=== PATIENT | male | born 1965 ===

== ENCOUNTER 2016-06-01 18:25 | Emergency (ER) | payer OTHER ==
[2016-06-01 18:36] VITALS: BMI 29.8
[2016-06-01 19:30] LABS: BASO # 0.1 K/uL (0.0-0.2); EOS # 0.4 K/uL (0.0-0.7); EOS % 3.7 % (0.0-4.0); LYMPH # 3.3 K/uL (1.0-4.3); LYMPH % 34.7 % (20.0-40.0); MEAN CORPUSCULAR HEMOGLOBIN 29.5 pg (27.0-31.0); MEAN CORPUSCULAR HGB CONC 33.8 g/dL (33.0-37.0); MEAN PLATELET VOLUME 10.6 fL (7.2-11.7); MONO # 0.5 K/uL (0.0-0.8); MONO % 5.1 % (0.0-10.0); RED CELL DISTRIBUTION WIDTH 13.9 % (11.5-14.5); WHITE BLOOD COUNT 9.5 K/uL (4.8-10.8)
[2016-06-01 19:35] LABS: CHLORIDE 98 mmol/L (98-107); POTASSIUM 3.9 mmol/L (3.6-5.2); SODIUM 138 mmol/L (132-148)
[2016-06-01 19:37] LABS: AST/SGOT 28 U/L (17-59); BILIRUBIN,TOTAL 0.4 mg/dL (0.2-1.3); CARBON DIOXIDE 25 mmol/L (22-30); GFR AFRICAN-AMERICAN > 60
[2016-06-01 19:38] LABS: ALB/GLOB RATIO 1.3 (1.0-2.1); ALKALINE PHOSPHATASE 62 U/L (38-126); ALT/SGPT 41 U/L (21-72); BLOOD UREA NITROGEN 17 mg/dL (9-20); CALCIUM 8.9 mg/dl (8.6-10.4); GLUCOSE,RANDOM 90 mg/dL (75-110); TOTAL PROTEIN 7.7 g/dL (6.3-8.3)
--- NOTE | 2016-06-01 19:42 | C.PDOC ---
History Of Present Illness Patient presents to the emergency room with complaints of intermittent chest pain for 2 days. Patient also notes dizziness and headaches. Patient's blood pressure is not well controlled. Patient denies shortness of breath, visual changes, nausea, vomiting, diarrhea, or any other complaints. Time Seen by Provider: 06/01/16 19:41 Chief Complaint (Nursing): Palpitations History Per: Patient Onset/Duration Of Symptoms: Days (2) Current Symptoms Are (Timing): Still Present Associated Symptoms: Chest Pain, Dizziness, Headache. denies: Blurred Vision Severity: Mild Pain Scale Rating Of: 4 Recent travel outside of the [place]: No Past Medical History Reviewed: Historical Data, Nursing Documentation, Vital Signs Vital Signs: Last Vital Signs Temp 98.1 F 06/01/16 19:19 Pulse 71 06/01/16 19:19 Resp 17 06/01/16 19:19 BP 147/108 H 06/01/16 20:34 Pulse Ox 96 06/01/16 20:00 - Medical History PMH: HTN Denies: Chronic Kidney Disease Family History: States: Unknown Family Hx - Social History Hx Tobacco Use: No Hx Alcohol Use: No Hx Substance Use: No - Immunization History Hx Tetanus Toxoid Vaccination: No Hx Influenza Vaccination: No Hx Pneumococcal Vaccination: No Review Of Systems Cardiovascular: Positive for: Chest Pain Respiratory: Negative for: Shortness of Breath Gastrointestinal: Negative for: Nausea, Vomiting, Diarrhea Neurological: Negative for: Headache, Dizziness Physical Exam - Physical Exam Appears: Non-toxic Skin: Warm, Dry Chest: Symmetrical, No Tenderness Cardiovascular: Rhythm Regular Respiratory: No Rales, No Rhonchi, No Wheezing Gastrointestinal/Abdominal: Soft, No Tenderness, No Guarding, No Rebound Extremity: Normal ROM, No Tenderness, No Calf Tenderness, No Swelling Neurological/Psych: Oriented x3 ED Course And Treatment - Laboratory Results Result Diagrams: 06/01/16 19:27 06/01/16 19:27 ECG: Interpreted By Me, Viewed By Me ECG Rhythm: Sinus Rhythm (84), Nonspecific Changes O2 Sat by Pulse Oximetry: 96 Pulse Ox Interpretation: Normal Progress Note: cardiac work up, toradol, ct head Reevaluation Time: 21:05 Reassessment Condition: Improved Medical Decision Making Medical Decision Making: Upon provider reevaluation patient is feeling better, is medically stable, and requires no further treatment in the ED at this time. Patient will be discharged home with Rx for Naproxyn . Counseling was provided and all questions were answered regarding diagnosis and need for follow up with the referred clinic. There is agreement to discharge plan. Return if symptoms persist or worsen. Disposition Counseled Patient/Family Regarding: Studies Performed, Diagnosis, Need For Followup, Rx Given - Disposition Referrals: Pat Samuel DO [Resident] - Disposition: HOME/ ROUTINE Disposition Time: 20:06 Condition: FAIR Additional Instructions: Please return if symptoms recur Prescriptions: Naproxen [Naprosyn] 1 tab PO BID PRN #25 tab PRN Reason: Pain Instructions: Palpitations (ED), Hypertension (DC), General Headache (ED) Print Language: TAMAZIGHT - Clinical Impression Clinical Impression: Palpitations, HTN (hypertension), Headache - Scribe Statement The provider has reviewed the documentation as recorded by the Scribroyer Wiley All medical record entries made by the Lilianeibroyer were at my direction and personally dictated by me. I have reviewed the chart and agree that the record accurately reflects my personal performance of the history, physical exam, medical decision making, and the department course for this patient. I have also personally directed, reviewed, and agree with the discharge instructions and disposition.
[2016-06-01 20:08] LABS: RBC URINE < 1 /hpf (0-3); URINE BACTERIA OCC (<OCC); URINE BILIRUBIN NEGATIVE (NEGATIVE); URINE BLOOD NEGATIVE (NEGATIVE); URINE COLOR Yellow (YELLOW); URINE GLUCOSE (UA) NORMAL (Normal); URINE KETONE NEGATIVE (NEGATIVE); URINE LEUKOCYTE ESTERASE TRACE Leu/uL (Negative); URINE PROTEIN NEGATIVE (NEGATIVE); URINE UROBILINOGEN NORMAL mg/dL (0.2-1.0); WBC URINE 7 /hpf (0-5)
[2016-06-01 21:19] VITALS: BP 142/81; PULSE 72; RESP 20; TEMP 98.6; O2SAT 98
--- NOTE | 2016-06-02 07:53 | CT ---
PROCEDURE: CT HEAD WITHOUT CONTRAST. HISTORY: dizziness COMPARISON: None available. TECHNIQUE: Axial computed tomography images were obtained through the head/brain without intravenous contrast. This CT exam was performed using one or more of the following dose reduction techniques: Automated exposure control, adjustment of the mA and/or kV according to patient size, and/or use of iterative reconstruction technique. Radiation dose: Total exam DLP = 896.79 mGy-cm. FINDINGS: HEMORRHAGE: No intracranial hemorrhage. BRAIN: No mass effect or edema. No atrophy or chronic microvascular ischemic changes. VENTRICLES: Unremarkable. No hydrocephalus. CALVARIUM: Unremarkable. PARANASAL SINUSES: Almost complete opacification of the right sphenoid sinus and mild mucosal thickening in the left frontal and ethmoid sinuses. MASTOID AIR CELLS: Unremarkable as visualized. No inflammatory changes. OTHER FINDINGS: None. IMPRESSION: No evidence of acute intracranial hemorrhage intracranial collection territorial infarct mass effect or midline shift. Mild atrophy. Sinuses mucosal disease more prominent at the right sphenoid sinus. Preliminary report was submitted by virtual Radiology.
--- NOTE | 2016-06-02 08:21 | RAD ---
PROCEDURE: CHEST RADIOGRAPH, 1 VIEW HISTORY: Palpations COMPARISON: 10/13/2014 FINDINGS: LUNGS: Clear. PLEURA: No pneumothorax or pleural fluid seen. CARDIOVASCULAR: Normal. OSSEOUS STRUCTURES: No significant abnormalities. VISUALIZED UPPER ABDOMEN: Normal. OTHER FINDINGS: None. IMPRESSION: No active disease.
--- NOTE | 2016-06-03 06:26 | CARD ---
APPROVED REPORT EKG Measurement Heart [id number] <Conclusion> Normal sinus rhythm Normal ECG
== END 2016-06-01 21:19 | disposition home or self-care (01) ==
LOC: C.ER 18:25
DX: R00.2 Palpitations (principal); I10 Essential (primary) hypertension; R51 Headache
CPT/HCPCS: 70450; 71010; 80053; 80324; 80345; 80346; 80349; 80353; 80358; 80361; 81001; 83992; 84443; 84484; 85025; 85610; 85730; 93005; 96374; 99285; J1885

== ENCOUNTER 2016-06-06 13:17 | Emergency (ER) | payer OTHER ==
[2016-06-06 13:18] VITALS: BMI 29.8
[2016-06-06 13:36] VITALS: TEMP 98.1; O2SAT 100
[2016-06-06 14:16] LABS: URINE BILIRUBIN NEGATIVE (NEGATIVE); URINE BLOOD NEGATIVE (NEGATIVE); URINE COLOR Yellow (YELLOW); URINE GLUCOSE (UA) NORMAL (Normal); URINE KETONE NEGATIVE (NEGATIVE); URINE LEUKOCYTE ESTERASE NEG Leu/uL (Negative); URINE PROTEIN NEGATIVE (NEGATIVE); URINE UROBILINOGEN NORMAL mg/dL (0.2-1.0); WBC URINE 1 /hpf (0-5)
[2016-06-06 14:50] VITALS: BP 161/98; PULSE 64; RESP 18
--- NOTE | 2016-06-06 14:50 | C.PDOC ---
History Of Present Illness 51 y/o male presents to the ED with complains of chronic right epididymal discomfort intermittently. Pt denies dysuria, urinary retention or any other complaints. Time Seen by Provider: 06/06/16 13:51 Chief Complaint (Nursing): Abdominal Pain History Per: Patient History/Exam Limitations: no limitations Onset/Duration Of Symptoms: Days, Intermittent Episodes Current Symptoms Are (Timing): Still Present Associated Symptoms: denies: Fever, Urinary Symptoms Exacerbating Factors: None Alleviating Factors: None Recent travel outside of the [place]: No Past Medical History Reviewed: Historical Data, Nursing Documentation, Vital Signs Vital Signs: Last Vital Signs Temp 98.1 F 06/06/16 13:22 Pulse 64 06/06/16 14:47 Resp 18 06/06/16 14:47 BP 161/98 H 06/06/16 14:47 Pulse Ox 100 06/06/16 14:50 - Medical History PMH: HTN Family History: States: Unknown Family Hx - Social History Hx Tobacco Use: No Hx Alcohol Use: No Hx Substance Use: No - Immunization History Hx Tetanus Toxoid Vaccination: No Hx Influenza Vaccination: No Hx Pneumococcal Vaccination: No Review Of Systems Except As Marked, All Systems Reviewed And Found Negative. Constitutional: Negative for: Fever Genitourinary: Positive for: Other (right epididymal discomfort. no urinary retention). Negative for: Dysuria Physical Exam - Physical Exam Appears: Non-toxic, No Acute Distress Skin: Warm, Dry, No Rash Head: Atraumatic, Normacephalic Chest: Symmetrical Cardiovascular: Rhythm Regular Respiratory: Normal Breath Sounds, No Rales, No Rhonchi, No Wheezing Gastrointestinal/Abdominal: Soft, No Tenderness, Other (no bladder fullness) Male Genital: Normal Inspection, No Testicular Tenderness, No Testicular Swelling, No Inguinal Tenderness, No Inguinal Swelling, No Scrotal Swelling, Other (normal penis, scrotum and testicles) Extremity: Normal ROM Extremity: Bilateral: Atraumatic Neurological/Psych: Oriented x3 ED Course And Treatment - Laboratory Results Lab Interpretation: Normal (UA neg.) O2 Sat by Pulse Oximetry: 100 (on room air) Pulse Ox Interpretation: Normal Reevaluation Time: 14:48 Reassessment Condition: Improved Medical Decision Making Medical Decision Making: h/o urinary retention and hematuria but normal UA and bladder scan 60 cc's today vague R epididimal discomfort (for years) ok to f/u with Urology Vague R knee discomforts chronic- already in outpatient ortho clinic. Disposition Doctor Will See Patient In The: Office Counseled Patient/Family Regarding: Studies Performed, Diagnosis - Disposition Referrals: Matthew Guerin MD [Staff Provider] - Disposition: HOME/ ROUTINE Disposition Time: 14:49 Condition: GOOD Additional Instructions: Sigue con Dr. Huerta- Urologo- para seguir ravi evaluaciones de molestias de la prostata y los testiculos. [place] ibuprofeno 600 mg cada 6 horas kusum necessario la orina y la vejiga estan normales hoy. Instructions: Testicle Pain (ED) Print Language: FIJIAN - Clinical Impression Clinical Impression: Pelvic pain in male - Scribe Statement The provider has reviewed the documentation as recorded by the Yoli Foss Provider Attestation: All medical record entries made by the Lilianeibe were at my direction and personally dictated by me. I have reviewed the chart and agree that the record accurately reflects my personal performance of the history, physical exam, medical decision making, and the department course for this patient. I have also personally directed, reviewed, and agree with the discharge instructions and disposition.
== END 2016-06-06 15:02 | disposition home or self-care (01) ==
LOC: C.ER 13:17
DX: R10.2 Pelvic and perineal pain (principal)

== ENCOUNTER 2016-09-26 16:53 | Emergency (ER) | payer OTHER ==
[2016-09-26 17:10] VITALS: O2SAT 98
[2016-09-26] MEDS ORDERED: Sodium Chloride 0.9% 1,000 ML IV ONE (17:36)
[2016-09-26] MEDS ORDERED: Sodium Chloride 0.9% 1,000 ML ONE (17:54)
[2016-09-26 18:04] LABS: BASO # 0.1 K/uL (0.0-0.2); BASO % 0.9 % (0.0-2.0); EOS # 0.4 K/uL (0.0-0.7); EOS % 5.3 % (0.0-4.0); HEMATOCRIT 43.2 % (35.0-51.0); LYMPH # 2.2 K/uL (1.0-4.3); LYMPH % 28.4 % (20.0-40.0); MEAN CELL VOLUME 87.1 fL (80.0-94.0); MEAN CORPUSCULAR HGB CONC 34.4 g/dL (33.0-37.0); MEAN PLATELET VOLUME 10.2 fL (7.2-11.7); MONO # 0.5 K/uL (0.0-0.8); MONO % 6.6 % (0.0-10.0); RED CELL DISTRIBUTION WIDTH 13.8 % (11.5-14.5); WHITE BLOOD COUNT 7.6 K/uL (4.8-10.8)
[2016-09-26 18:12] LABS: CHLORIDE 102 mmol/L (98-107)
[2016-09-26 18:13] LABS: POTASSIUM 3.8 mmol/L (3.6-5.2); SODIUM 144 mmol/L (132-148)
[2016-09-26 18:15] LABS: ALB/GLOB RATIO 1.4 (1.0-2.1); ALKALINE PHOSPHATASE 87 U/L (38-126); AST/SGOT 28 U/L (17-59); BILIRUBIN,TOTAL 0.6 mg/dL (0.2-1.3); CARBON DIOXIDE 26 mmol/L (22-30); GFR AFRICAN-AMERICAN > 60
[2016-09-26 18:16] LABS: ALT/SGPT 40 U/L (21-72); BLOOD UREA NITROGEN 10 mg/dL (9-20); CALCIUM 9.2 mg/dl (8.6-10.4); GLUCOSE,RANDOM 86 mg/dL (75-110)
[2016-09-26 18:19] LABS: RBC URINE 73 /hpf (0-3); URINE BACTERIA OCC (<OCC); URINE BILIRUBIN NEGATIVE (NEGATIVE); URINE BLOOD 3+ (NEGATIVE); URINE COLOR Yellow (YELLOW); URINE GLUCOSE (UA) NORMAL (Normal); URINE KETONE NEGATIVE (NEGATIVE); URINE LEUKOCYTE ESTERASE 2+ Leu/uL (Negative); URINE PROTEIN NEGATIVE (NEGATIVE); URINE UROBILINOGEN NORMAL mg/dL (0.2-1.0); WBC URINE 16 /hpf (0-5)
--- NOTE | 2016-09-26 18:30 | CT ---
PROCEDURE: CT Abdomen and Pelvis without Oral or IV contrast. HISTORY: Right flank pain, hematuria COMPARISON: CT abdomen and pelvis with contrast performed 09/06/14 TECHNIQUE: Contiguous axial images of the abdomen and pelvis. No oral or IV contrast administered. Coronal and Sagittal reformats generated and reviewed. Radiation dose: Total exam DLP = 767.44 mGy-cm. This CT exam was performed using one or more of the following dose reduction techniques: Automated exposure control, adjustment of the mA and/or kV according to patient size, and/or use of iterative reconstruction technique. FINDINGS: There is limited evaluation of the solid organs without the administration of IV contrast. LOWER THORAX: No visible consolidation, pleural effusion, or pneumothorax. LIVER: Unremarkable unenhanced appearance. GALLBLADDER AND BILE DUCTS: Cholelithiasis. PANCREAS: Unremarkable unenhanced appearance. SPLEEN: Unremarkable unenhanced appearance. ADRENALS: Unremarkable unenhanced appearance. KIDNEYS AND URETERS: No hydronephrosis or obstructing renal calculus. BLADDER: Under distention of the urinary bladder limits evaluation. REPRODUCTIVE: The prostate gland measures approximately 4.7 x 4.6 cm. APPENDIX: The appendix appears within normal limits of caliber. No secondary signs of acute appendicitis. BOWEL: The stomach is nondistended. Lack of oral contrast limits evaluation for bowel pathology. The bowel loops appear within normal limits of caliber without evidence of intestinal obstruction. PERITONEUM: No significant free fluid. No definite free air. LYMPH NODES: No bulky lymphadenopathy identified. VASCULATURE: No aortic aneurysm. BONES: Mild degenerative changes. OTHER FINDINGS: None. IMPRESSION: Cholelithiasis. Enlarged prostate gland. Recommend correlation with PSA.
[2016-09-26] MEDS ORDERED: cefTRIAXone IV 1 gm in Dextros 50 ML IVPB ONE ×2 (19:14→19:37)
--- NOTE | 2016-09-26 20:11 | C.PDOC ---
Time Seen by Provider: 09/26/16 17:19 Chief Complaint (Nursing): Abdominal Pain History Per: Patient, Family Onset/Duration Of Symptoms: Days (few), Waxing/Waning Current Symptoms Are (Timing): Still Present Severity: Moderate Location Of Pain/Discomfort: RLQ Radiation Of Pain To:: Back, Flank Quality Of Discomfort: "Pain" Associated Symptoms: Urinary Symptoms Exacerbating Factors: None Alleviating Factors: None Additional History Per: Prior Records Past Medical History Reviewed: Historical Data, Nursing Documentation, Vital Signs Vital Signs: Last Vital Signs Temp 97.6 F 09/26/16 19:22 Pulse 62 09/26/16 19:22 Resp 18 09/26/16 19:22 BP 163/97 H 09/26/16 19:22 Pulse Ox 98 09/26/16 19:22 - Medical History PMH: HTN, Kidney Stones Surgical History: No Surg Hx Family History: States: Unknown Family Hx - Social History Hx Tobacco Use: No Hx Alcohol Use: No Hx Substance Use: No - Immunization History Hx Tetanus Toxoid Vaccination: No Hx Influenza Vaccination: No Hx Pneumococcal Vaccination: No Review Of Systems Except As Marked, All Systems Reviewed And Found Negative. Constitutional: Negative for: Fever, Weakness Cardiovascular: Negative for: Chest Pain Respiratory: Negative for: Shortness of Breath Gastrointestinal: Negative for: Vomiting, Diarrhea Genitourinary: Positive for: Dysuria, Hematuria Musculoskeletal: Negative for: Neck Pain Skin: Negative for: Rash Neurological: Negative for: Weakness, Numbness, Seizures, Altered Mental Status Physical Exam - Physical Exam Appears: Non-toxic, No Acute Distress Skin: Normal Color, Warm, Dry, No Rash Head: Atraumatic, Normacephalic Eye(s): bilateral: Normal Inspection, PERRL, EOMI Cardiovascular: Rhythm Regular Respiratory: Normal Breath Sounds, No Accessory Muscle Use Gastrointestinal/Abdominal: Soft, Tenderness (right side) Back: No CVA Tenderness Extremity: Normal ROM Neurological/Psych: Oriented x3, Normal Motor, Normal Sensation ED Course And Treatment - Laboratory Results Result Diagrams: 09/26/16 18:00 09/26/16 18:00 Lab Interpretation: Abnormal Interpretation Of Abnormal: Hematuria/UTI. O2 Sat by Pulse Oximetry: 98 Pulse Ox Interpretation: Normal - CT Scan/US CT abd/pelv. Other Rad Studies (CT/US): Read By Radiologist, Radiology Report Reviewed CT/US Interpretation: IMPRESSION: Cholelithiasis. Enlarged prostate gland. Recommend correlation with PSA. Progress - Interventions Interventions:: Observation, Intravenous fluid - Medications Administered Intravenous: NSAID - Data Reviewed Data Reviewed: Lab, Diagnostic imaging, Old records - Patient Status Patient status: Mostly improved - Continuity of Care Discussed patient case with:: Patient, Family-HIPPA compliant, ED Nurse - Patient Plan Patient Plan: Discharge, F/U with PCP, Continue present meds Disposition Counseled Patient/Family Regarding: Studies Performed, Diagnosis, Need For Followup, Rx Given - Disposition Referrals: Saad Whittington MD [Staff Provider] - [facility] [Outside] Disposition: HOME/ ROUTINE Disposition Time: 20:12 Condition: STABLE Additional Instructions: Drink plenty of fluids. Follow up with a Urologist within 1 week for further evaluation and treatment. Return to the ER if you develop fever, vomiting, trouble urinating, worsening of symptoms or if you have any other concerns. Prescriptions: Ciprofloxacin [Cipro] 1 tab PO BID #14 tab Instructions: Urinary Tract Infection in Men (ED) Print Language: ITALIAN - Clinical Impression Clinical Impression: Right flank pain, UTI (urinary tract infection), Enlarged prostate
[2016-09-26 20:22] VITALS: BP 150/83; PULSE 54; RESP 20; TEMP 97.9
== END 2016-09-26 20:22 | disposition home or self-care (01) ==
LOC: C.ER 16:53
DX: N39.0 Urinary tract infection, site not specified (principal); N40.0 Benign prostatic hyperplasia without lower urinary tract symptoms; R10.31 Right lower quadrant pain
CPT/HCPCS: 74176; 80053; 81001; 83690; 85025; 87086; 96361; 96374; 96375; 99284; J0696; J1885; J7040

== ENCOUNTER 2016-12-30 11:24 | Emergency (ER) | payer OTHER ==
[2016-12-30 11:39] VITALS: BMI 34.5
[2016-12-30 11:40] VITALS: TEMP 97.8; O2SAT 98
[2016-12-30] MEDS ORDERED: Sodium Chloride 0.9% 1,000 ML IV ONE (12:18)
[2016-12-30 12:20] LABS: BASO # 0.1 K/uL (0.0-0.2); BASO % 0.7 % (0.0-2.0); EOS # 0.6 K/uL (0.0-0.7); EOS % 7.9 % (0.0-4.0); HEMATOCRIT 45.1 % (35.0-51.0); LYMPH # 2.1 K/uL (1.0-4.3); LYMPH % 26.8 % (20.0-40.0); MEAN CELL VOLUME 88.1 fL (80.0-94.0); MEAN CORPUSCULAR HEMOGLOBIN 29.7 pg (27.0-31.0); MEAN CORPUSCULAR HGB CONC 33.7 g/dL (33.0-37.0); MEAN PLATELET VOLUME 10.3 fL (7.2-11.7); MONO # 0.4 K/uL (0.0-0.8); MONO % 5.3 % (0.0-10.0); RED CELL DISTRIBUTION WIDTH 14.1 % (11.5-14.5); WHITE BLOOD COUNT 7.8 K/uL (4.8-10.8)
[2016-12-30 12:23] LABS: CHLORIDE 102 mmol/L (98-107); SODIUM 135 mmol/L (132-148)
[2016-12-30 12:25] LABS: GFR AFRICAN-AMERICAN > 60
[2016-12-30 12:26] LABS: ALB/GLOB RATIO 1.6 (1.0-2.1); ALKALINE PHOSPHATASE 75 U/L (38-126); ALT/SGPT 60 U/L (21-72); AST/SGOT 44 U/L (17-59); BLOOD UREA NITROGEN 15 mg/dL (9-20); CALCIUM 8.8 mg/dl (8.6-10.4); CARBON DIOXIDE 22 mmol/L (22-30); GLUCOSE,RANDOM 133 mg/dL (75-110)
[2016-12-30 12:27] LABS: URINE BACTERIA RARE (<OCC); URINE BILIRUBIN NEGATIVE (NEGATIVE); URINE BLOOD 2+ (NEGATIVE); URINE COLOR Yellow (YELLOW); URINE GLUCOSE (UA) NORMAL (Normal); URINE KETONE NEGATIVE (NEGATIVE); URINE LEUKOCYTE ESTERASE TRACE Leu/uL (Negative); URINE PROTEIN NEGATIVE (NEGATIVE); URINE UROBILINOGEN NORMAL mg/dL (0.2-1.0); WBC URINE 5 /hpf (0-5)
[2016-12-30 12:28] LABS: RBC URINE 4 /hpf (0-3)
--- NOTE | 2016-12-30 12:52 | C.PDOC ---
History Of Present Illness 51 year old male presents to ED for evaluation of intermittent lower abdominal and pelvic pain that radiates to his right testicle for the past 4 days. Pt reports associated hematuria for the last 2 days. Pt also complaints of chills and body aches for the past 1 month. He denies n/v/d, dysuria, or fever. Time Seen by Provider: 12/30/16 11:40 Chief Complaint (Nursing): Abdominal Pain History Per: Patient History/Exam Limitations: no limitations Onset/Duration Of Symptoms: Days (4) Current Symptoms Are (Timing): Still Present Severity: Mild Location Of Pain/Discomfort: Suprapubic Quality Of Discomfort: "Pain" Associated Symptoms: Chills, Urinary Symptoms. denies: Loss Of Appetite, Back Pain, Chest Pain Exacerbating Factors: None Alleviating Factors: None Additional History Per: Patient Past Medical History Reviewed: Historical Data, Nursing Documentation, Vital Signs Vital Signs: Last Vital Signs Temp 97.8 F 12/30/16 15:40 Pulse 78 12/30/16 15:40 Resp 20 12/30/16 15:40 BP 120/74 12/30/16 15:40 Pulse Ox 98 12/30/16 15:40 - Medical History PMH: HTN, Kidney Stones Family History: States: No Known Family Hx - Social History Hx Tobacco Use: No Hx Alcohol Use: No Hx Substance Use: No - Immunization History Hx Tetanus Toxoid Vaccination: No Hx Influenza Vaccination: No Hx Pneumococcal Vaccination: No Review Of Systems Except As Marked, All Systems Reviewed And Found Negative. Constitutional: Positive for: Chills, Other (body aches) Cardiovascular: Negative for: Chest Pain Respiratory: Negative for: Cough, Shortness of Breath Gastrointestinal: Positive for: Abdominal Pain. Negative for: Nausea, Vomiting , Diarrhea, Constipation Genitourinary: Positive for: Hematuria. Negative for: Dysuria, Frequency, Penile Discharge, Rash, Penile Pain Musculoskeletal: Negative for: Back Pain Skin: Negative for: Rash Physical Exam - Physical Exam Appears: Well, Non-toxic, No Acute Distress (comfortable) Skin: Normal Color, Warm, Dry, No Rash Head: Normacephalic Eye(s): bilateral: Normal Inspection Oral Mucosa: Moist Neck: Supple Cardiovascular: Rhythm Regular Respiratory: Normal Breath Sounds, No Rales, No Rhonchi, No Wheezing Gastrointestinal/Abdominal: Bowel Sounds, Soft, Tenderness (right side suprapubic TTP), No Distention, No Guarding, No Rebound, No Hernia, Other (no inguinal tenderness/lymphadenopathy/erythema/hernias) Back: Normal Inspection, No CVA Tenderness Male Genital: No Inguinal Tenderness, No Inguinal Swelling, No Scrotal Swelling Extremity: Normal ROM, No Pedal Edema, No Deformity Neurological/Psych: Oriented x3 ED Course And Treatment - Laboratory Results Result Diagrams: 12/30/16 12:08 12/30/16 12:08 O2 Sat by Pulse Oximetry: 98 (RA) Pulse Ox Interpretation: Normal - CT Scan/US ct abd/pelvis Other Rad Studies (CT/US): Read By Radiologist, Radiology Report Reviewed CT/US Interpretation: Accession No. : [id number]. Patient Name / ID : FABIANA HERMOSILLO / [id number]. Exam Date : 12/30/2016 13:19:30 ( Approved ). Study Comment : Sex / Age : M / 51Y. Creator : Rufus Jackson MD. Dictator : Rufus Jackson MD. Evp Strategy : Pattern Worker : Rufus Jackson MD. Approver2 : Report Date : 12/30/2016 14:56:18. My Comment : . PROCEDURE: CT Abdomen and Pelvis without intravenous contrast. HISTORY: Abdominal pain. HEMATURIA, R/O KIDNEY STONE. COMPARISON: None. TECHNIQUE: Multiple contiguous axial images were performed through the abdomen and pelvis without the use of intravenous contrast. Subsequently, sagittal and coronal reformatted images were obtained. Radiation dose: Total exam DLP = 890 mGy- cm. This CT exam was performed using one or more of the following dose reduction techniques: Automated exposure control, adjustment of the mA and/or kV according to patient size, and/or use of iterative reconstruction technique. FINDINGS: LOWER THORAX: Punctate 2 millimeter nodule within the right middle lobe. Mild dependent atelectasis. Rounded 7 millimeter nodule at the lateral aspect of the left lower lobe. LIVER: 7 millimeter hypodensity in the inferior right hepatic lobe, too small to adequately characterize. GALLBLADDER AND BILE DUCTS: Cholelithiasis. PANCREAS: Unremarkable. No gross lesion or ductal dilatation. SPLEEN: Unremarkable. ADRENALS: Unremarkable. No mass. KIDNEYS AND URETERS: 1.5 centimeter low-attenuation lesion seen within the upper pole of the left kidney demonstrating a Hounsfield unit attenuation of 10 suggestive for a cyst. VASCULATURE: Unremarkable. No aortic aneurysm. BOWEL: Unremarkable. No obstruction. No gross mural thickening. Fecal retention in the colon. Under distended sigmoid colon. APPENDIX: Unremarkable. Normal appendix. PERITONEUM: Unremarkable. No free fluid. No free air. LYMPH NODES: Unremarkable. No enlarged lymph nodes. BLADDER: Unremarkable. REPRODUCTIVE : Heterogeneous prostate and seminal vesicles. BONES: Degenerative changes in the spine with bilateral bridging osteophytes at the SI joints. OTHER FINDINGS: Calcification and plaque within the aorta and iliac vessels. IMPRESSION: Negative acute abdomen and pelvis. 1.5 centimeter low-attenuation lesion seen within the upper pole of the left kidney demonstrating a Hounsfield unit attenuation of 10 suggestive for a cyst. Punctate 2 millimeter nodule within the right middle lobe. Mild dependent atelectasis. Rounded 7 millimeter nodule at the lateral aspect of the left lower lobe. Additional 2 millimeter nodule within the lateral aspect of the right lower lobe on series 3, image 19. Fecal retention in the colon. Under distended sigmoid colon. Progress Note: Blood work, UA, CT scan abd/pelvis ordered and reviewed. Patient given IV NS bolus, IV toradol. Reevaluation Time: 15:20 Reassessment Condition: Improved (On reassessment, patient states he feels better. On exam, abdomen is soft and nontender. Blood work WNL, UA shows trace leuk esterase, bacteria, blood. Ct scan (-) for kidney ston. Will treat patient with PO Ciprofloxacin for possible UTI. He was instructed to follow up with urology within 1 week, and understands he should return to ED if symptoms worsen.) Disposition Counseled Patient/Family Regarding: Studies Performed, Diagnosis, Need For Followup, Rx Given - Disposition Referrals: Matthew Guerin MD [Staff Provider] - [facility] [Outside] Disposition: HOME/ ROUTINE Disposition Time: 15:20 Condition: STABLE Additional Instructions: FOLLOW UP WITH UROLOGY WITHIN 1 WEEK USE MEDICATIONS DIRECTED, AND DRINK PLENTY OF FLUIDS RETURN TO EMERGENCY ROOM IF SYMPTOMS WORSEN SEGUIMIENTO CON UROLOGA DENTRO DE 1 SEMANA USE MEDICAMENTOS SEGN LO INDICADO Y SLIM TRACY GRAN CANTIDAD DE FLUIDOS REGRESE AL SANDY DE EMERGENCIA SI LOS SNTOMAS EMPEORAN Prescriptions: Ciprofloxacin [Cipro] 1 tab PO BID #14 tab Naproxen 375 mg PO BID PRN #20 tablet PRN Reason: pain Instructions: Urinary Tract Infection in Men (ED) Forms: Onepager (Slovak) Print Language: SERBIAN - POA Present On Arrival: None - Clinical Impression Clinical Impression: UTI (urinary tract infection) - Scribe Statement The provider has reviewed the documentation as recorded by the Scribe Madelin Pandey All medical record entries made by the Scribe were at my direction and personally dictated by me. I have reviewed the chart and agree that the record accurately reflects my personal performance of the history, physical exam, medical decision making, and the department course for this patient. I have also personally directed, reviewed, and agree with the discharge instructions and disposition.
--- NOTE | 2016-12-30 14:57 | CT ---
PROCEDURE: CT Abdomen and Pelvis without intravenous contrast HISTORY: Abdominal pain. HEMATURIA, R/O KIDNEY STONE COMPARISON: None. TECHNIQUE: Multiple contiguous axial images were performed through the abdomen and pelvis without the use of intravenous contrast. Subsequently, sagittal and coronal reformatted images were obtained. Radiation dose: Total exam DLP = 890 mGy-cm. This CT exam was performed using one or more of the following dose reduction techniques: Automated exposure control, adjustment of the mA and/or kV according to patient size, and/or use of iterative reconstruction technique. FINDINGS: LOWER THORAX: Punctate 2 millimeter nodule within the right middle lobe. Mild dependent atelectasis. Rounded 7 millimeter nodule at the lateral aspect of the left lower lobe. LIVER: 7 millimeter hypodensity in the inferior right hepatic lobe, too small to adequately characterize. GALLBLADDER AND BILE DUCTS: Cholelithiasis. PANCREAS: Unremarkable. No gross lesion or ductal dilatation. SPLEEN: Unremarkable. ADRENALS: Unremarkable. No mass. KIDNEYS AND URETERS: 1.5 centimeter low-attenuation lesion seen within the upper pole of the left kidney demonstrating a Hounsfield unit attenuation of 10 suggestive for a cyst. VASCULATURE: Unremarkable. No aortic aneurysm. BOWEL: Unremarkable. No obstruction. No gross mural thickening. Fecal retention in the colon. Under distended sigmoid colon. APPENDIX: Unremarkable. Normal appendix. PERITONEUM: Unremarkable. No free fluid. No free air. LYMPH NODES: Unremarkable. No enlarged lymph nodes. BLADDER: Unremarkable. REPRODUCTIVE: Heterogeneous prostate and seminal vesicles. BONES: Degenerative changes in the spine with bilateral bridging osteophytes at the SI joints. OTHER FINDINGS: Calcification and plaque within the aorta and iliac vessels. IMPRESSION: Negative acute abdomen and pelvis. 1.5 centimeter low-attenuation lesion seen within the upper pole of the left kidney demonstrating a Hounsfield unit attenuation of 10 suggestive for a cyst. Punctate 2 millimeter nodule within the right middle lobe. Mild dependent atelectasis. Rounded 7 millimeter nodule at the lateral aspect of the left lower lobe. Additional 2 millimeter nodule within the lateral aspect of the right lower lobe on series 3, image 19. Fecal retention in the colon. Under distended sigmoid colon.
[2016-12-30 15:41] VITALS: BP 120/74; PULSE 78; RESP 20
== END 2016-12-30 15:41 | disposition home or self-care (01) ==
LOC: C.ER 11:24
DX: N39.0 Urinary tract infection, site not specified (principal); I10 Essential (primary) hypertension; Z87.442 Personal history of urinary calculi
CPT/HCPCS: 74176; 80053; 81001; 83690; 85025; 87086; 96361; 96374; 99285; J1885; J7040

== ENCOUNTER 2017-01-28 11:14 | Emergency (ER) | payer OTHER ==
[2017-01-28 11:15] VITALS: BMI 34.5
[2017-01-28 13:08] LABS: URINE BILIRUBIN NEGATIVE (NEGATIVE); URINE BLOOD NEGATIVE (NEGATIVE); URINE COLOR Yellow (YELLOW); URINE GLUCOSE (UA) NORMAL (Normal); URINE KETONE NEGATIVE (NEGATIVE); URINE LEUKOCYTE ESTERASE NEG Leu/uL (Negative); URINE PROTEIN NEGATIVE (NEGATIVE); URINE UROBILINOGEN NORMAL mg/dL (0.2-1.0); WBC URINE 2 /hpf (0-5)
[2017-01-28] MEDS ORDERED: cefTRIAXone (Rocephin) 250 mg Inj IM STA (13:18)
--- NOTE | 2017-01-28 13:41 | C.PDOC ---
Time Seen by Provider: 01/28/17 11:54 Chief Complaint (Nursing): Upper Extremity Problem/Injury Past Medical History Vital Signs: Last Vital Signs Temp 98.2 F 01/28/17 11:26 Pulse 90 01/28/17 11:26 Resp 16 01/28/17 11:26 BP 166/112 H 01/28/17 11:26 Pulse Ox 99 01/28/17 11:26 - Medical History PMH: HTN, Kidney Stones Family History: States: Unknown Family Hx - Social History Hx Tobacco Use: No Hx Alcohol Use: No Hx Substance Use: No - Immunization History Hx Tetanus Toxoid Vaccination: No Hx Influenza Vaccination: No Hx Pneumococcal Vaccination: No ED Course And Treatment O2 Sat by Pulse Oximetry: 99 Disposition - Disposition Forms: [facility] (Belarusian) - Scribe Statement The provider has reviewed the documentation as recorded by the Scribe (Agustina Wang)
--- NOTE | 2017-01-28 13:57 | C.PDOC ---
History Of Present Illness 51-year-old male, presents to the emergency department with complaints of bilateral arm pain for the past several months. Patient also notes dysuria for the past three days, with associated testicular pain. Patient reports that he has had intermittent testicular pain several times before but has not gotten it checked. Patient denies nausea/vomiting, fevers, chills, chest pain, or any other associated symptoms. No other complaints at this time. Time Seen by Provider: 01/28/17 11:54 Chief Complaint (Nursing): Upper Extremity Problem/Injury History Per: Patient History/Exam Limitations: no limitations Onset/Duration Of Symptoms: Days Current Symptoms Are (Timing): Still Present Severity: Moderate Alleviating Factors: None Recent travel outside of the [place]: No Past Medical History Reviewed: Historical Data, Nursing Documentation, Vital Signs Vital Signs: Last Vital Signs Temp 98.4 F 01/28/17 14:23 Pulse 92 H 01/28/17 14:23 Resp 20 01/28/17 14:23 BP 156/92 H 01/28/17 14:23 Pulse Ox 95 01/28/17 14:23 - Medical History PMH: HTN, Kidney Stones Family History: States: No Known Family Hx - Social History Hx Tobacco Use: No Hx Alcohol Use: No Hx Substance Use: No - Immunization History Hx Tetanus Toxoid Vaccination: No Hx Influenza Vaccination: No Hx Pneumococcal Vaccination: No Review Of Systems Except As Marked, All Systems Reviewed And Found Negative. Constitutional: Negative for: Fever, Chills Cardiovascular: Negative for: Chest Pain Respiratory: Negative for: Shortness of Breath Gastrointestinal: Negative for: Nausea, Vomiting Genitourinary: Positive for: Dysuria, Scrotal Pain Musculoskeletal: Positive for: Arm Pain. Negative for: Back Pain Neurological: Negative for: Weakness, Numbness, Headache, Dizziness Physical Exam - Physical Exam Appears: Non-toxic, No Acute Distress Skin: Warm, Dry, No Rash Head: Atraumatic, Normacephalic Eye(s): bilateral: Normal Inspection, PERRL, EOMI Nose: Normal Oral Mucosa: Moist Lips: Normal Appearing Throat: No Erythema, No Exudate Neck: Normal ROM, Supple Chest: Symmetrical, No Tenderness Cardiovascular: Rhythm Regular, No Friction Rub, No Murmur Respiratory: Normal Breath Sounds, No Accessory Muscle Use Gastrointestinal/Abdominal: Soft, No Tenderness Male Genital: No Testicular Tenderness, No Testicular Swelling, Inguinal Tenderness, No Inguinal Swelling, No Scrotal Swelling, Other (Land Title Examiner: Rei RHOADES ) Extremity: Normal ROM, No Swelling Neurological/Psych: Oriented x3, Normal Speech, Normal Motor Gait: Steady ED Course And Treatment O2 Sat by Pulse Oximetry: 99 (on RA) Pulse Ox Interpretation: Normal Medical Decision Making Medical Decision Making: PLan: Rocephin, Toradol, Zithromax UA Reassess and Disposition Testicular exam is negative and patient most likely has urethritis based on symptoms. Urine culture sent. On re-exam, the patient reports improvement of symptoms. Lungs are CTA, heart is RRR, abdomen is soft, non-tender, and patient is tolerating PO well.. Ambulatory in the ED with steady gait. Follow up with the medical doctor within 1-2 days. Return if worsened. Disposition - Disposition Referrals: Francis Luz Jr., MD [Staff Provider] - Disposition: HOME/ ROUTINE Disposition Time: 13:49 Condition: GOOD Additional Instructions: Follow up with the medical doctor within 1-2 days. Return if worsened. Prescriptions: Ciprofloxacin HCl [Cipro] 500 mg PO BID #28 tab Naproxen [Naprosyn] 500 mg PO BID #20 tab Instructions: Nonspecific Urethritis in Men (ED) Forms: [employer] (Welsh) Print Language: OCCITAN - POA Present On Arrival: None - Clinical Impression Clinical Impression: Dysuria, Urethritis, Polyarthralgia - Scribe Statement The provider has reviewed the documentation as recorded by the Scribe (Agustina Wang) All medical record entries made by the Scribe were at my direction and personally dictated by me. I have reviewed the chart and agree that the record accurately reflects my personal performance of the history, physical exam, medical decision making, and the department course for this patient. I have also personally directed, reviewed, and agree with the discharge instructions and disposition.
--- NOTE | 2017-01-28 14:03 | C.PDOC ---
History Of Present Illness 51-year-old male, presents to the emergency department with complaints of bilateral arm pain for the past several months. Patient also notes dysuria for the past three days, with associated testicular pain. Patient denies nausea/ vomiting, fevers, chills, chest pain, or any other associated symptoms. No other complaints at this time. Time Seen by Provider: 01/28/17 11:54 Chief Complaint (Nursing): Upper Extremity Problem/Injury History Per: Patient History/Exam Limitations: no limitations Onset/Duration Of Symptoms: Days Current Symptoms Are (Timing): Still Present Past Medical History Reviewed: Historical Data, Nursing Documentation, Vital Signs Vital Signs: Last Vital Signs Temp 98.2 F 01/28/17 11:26 Pulse 90 01/28/17 11:26 Resp 16 01/28/17 11:26 BP 166/112 H 01/28/17 11:26 Pulse Ox 99 01/28/17 14:11 - Medical History PMH: HTN, Kidney Stones Family History: States: No Known Family Hx - Social History Hx Tobacco Use: No Hx Alcohol Use: No Hx Substance Use: No - Immunization History Hx Tetanus Toxoid Vaccination: No Hx Influenza Vaccination: No Hx Pneumococcal Vaccination: No Review Of Systems Except As Marked, All Systems Reviewed And Found Negative. Constitutional: Negative for: Fever Cardiovascular: Negative for: Chest Pain Respiratory: Negative for: Shortness of Breath Gastrointestinal: Negative for: Nausea, Vomiting, Abdominal Pain Genitourinary: Positive for: Dysuria Musculoskeletal: Positive for: Arm Pain Neurological: Negative for: Weakness, Numbness, Headache, Dizziness Physical Exam - Physical Exam Appears: Non-toxic, No Acute Distress Skin: Warm, Dry, No Rash Head: Atraumatic, Normacephalic Eye(s): bilateral: Normal Inspection, PERRL Nose: Normal Oral Mucosa: Moist Lips: Normal Appearing Neck: Normal ROM Cardiovascular: Rhythm Regular, No Murmur Respiratory: Normal Breath Sounds, No Accessory Muscle Use Gastrointestinal/Abdominal: Soft, No Tenderness Male Genital: No Testicular Tenderness, No Testicular Swelling, Other (Residential Concierge : Rei RHOADES) Extremity: Normal ROM Neurological/Psych: Oriented x3, Normal Speech ED Course And Treatment O2 Sat by Pulse Oximetry: 99 (on RA) Pulse Ox Interpretation: Normal Medical Decision Making Medical Decision Making: PLan: * Rocephin, Toradol, Zithromax * UA * Reassess and Disposition Disposition - Disposition Referrals: Francis Luz Jr., MD [Staff Provider] - Additional Instructions: Follow up with the medical doctor within 1-2 days. Return if worsened. Prescriptions: Ciprofloxacin HCl [Cipro] 500 mg PO BID #28 tab Naproxen [Naprosyn] 500 mg PO BID #20 tab Instructions: Nonspecific Urethritis in Men (ED) Forms: [employer] (Mauritanian) Print Language: HUNGARIAN - Clinical Impression Clinical Impression: Dysuria, Urethritis, Polyarthralgia - Scribe Statement The provider has reviewed the documentation as recorded by the Scribe (Agustina Wang) All medical record entries made by the Scribe were at my direction and personally dictated by me. I have reviewed the chart and agree that the record accurately reflects my personal performance of the history, physical exam, medical decision making, and the department course for this patient. I have also personally directed, reviewed, and agree with the discharge instructions and disposition.
[2017-01-28 14:24] VITALS: BP 156/92; PULSE 92; RESP 20; TEMP 98.4
[2017-01-30 23:47] VITALS: O2SAT 99
== END 2017-01-28 15:09 | disposition home or self-care (01) ==
LOC: C.ER 11:14
DX: N34.2 Other urethritis (principal); R30.0 Dysuria; M25.50 Pain in unspecified joint
CPT/HCPCS: 81001; 87086; 87181; 87491; 87591; 96372; 99284; J0696; J1885

== ENCOUNTER 2017-02-09 16:20 | Emergency (ER) | payer OTHER ==
[2017-02-09 16:20] VITALS: BMI 34.5
[2017-02-09 16:29] VITALS: BP 154/99; PULSE 82; RESP 19; TEMP 98; O2SAT 97
[2017-02-09] MEDS ORDERED: Dexamethasone 4 mg/1 ml IM STA (17:20)
--- NOTE | 2017-02-09 17:25 | C.PDOC ---
History Of Present Illness 51 yr old male presents to the ER with complaints of bilateral arm pain and neck pain for the past 1 month. Patient denies fever, chest pain, SOB, headache , weakness or numbness. Time Seen by Provider: 02/09/17 16:46 Chief Complaint (Nursing): Upper Extremity Problem/Injury History Per: Patient History/Exam Limitations: no limitations Onset/Duration Of Symptoms: Days (1 month) Past Medical History Reviewed: Historical Data, Nursing Documentation, Vital Signs Vital Signs: Last Vital Signs Temp 98.0 F 02/09/17 16:28 Pulse 82 02/09/17 16:28 Resp 19 02/09/17 16:28 BP 154/99 H 02/09/17 16:28 Pulse Ox 97 02/09/17 18:37 - Medical History PMH: HTN, Kidney Stones Family History: States: No Known Family Hx - Social History Hx Tobacco Use: No Hx Alcohol Use: No Hx Substance Use: No - Immunization History Hx Tetanus Toxoid Vaccination: No Hx Influenza Vaccination: No Hx Pneumococcal Vaccination: No Review Of Systems Except As Marked, All Systems Reviewed And Found Negative. Constitutional: Negative for: Fever Cardiovascular: Negative for: Chest Pain Respiratory: Negative for: Shortness of Breath Musculoskeletal: Positive for: Neck Pain, Arm Pain (Bilateral) Neurological: Negative for: Weakness, Numbness, Headache Physical Exam - Physical Exam Appears: Non-toxic, No Acute Distress Skin: Warm, Dry, No Rash Head: Atraumatic, Normacephalic Eye(s): bilateral: Normal Inspection Oral Mucosa: Moist Neck: Normal ROM, No Midline Cervical Tenderness, No Paracervical Tenderness, Supple, Other (Bilateral muscle spasm in the trapezius muscle) Chest: Symmetrical, No Tenderness Cardiovascular: Rhythm Regular, No Friction Rub, No Murmur Respiratory: Normal Breath Sounds, No Rales, No Rhonchi, No Stridor, No Wheezing Gastrointestinal/Abdominal: Soft, No Tenderness Back: Normal Inspection, No CVA Tenderness Extremity: Normal ROM, No Swelling Neurological/Psych: Oriented x3, Normal Speech, Normal Motor, Normal Sensation Gait: Steady ED Course And Treatment O2 Sat by Pulse Oximetry: 97 (RA) Pulse Ox Interpretation: Normal Medical Decision Making Medical Decision Making: PLAN: * Decadron IM * Toradol IM On re-exam, the patient reports improvement of symptoms. Pulse ox is 96% on RA. Lungs are CTA, heart is RRR. Abdomen is soft, non-tender and tolerating PO well. Ambulatory in the ED with steady gait. Follow up with the medical doctor within 1-2 days, Return if worsened. Disposition - Disposition Referrals: [facility] at [facility] [Outside] Disposition: HOME/ ROUTINE Disposition Time: 18:34 Condition: GOOD Additional Instructions: Follow up with the medical doctor within 1-2 days. 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 - Scribe Statement The provider has reviewed the documentation as recorded by the Scribe Ligia Jacobson All medical record entries made by the Scribe were at my direction and personally dictated by me. I have reviewed the chart and agree that the record accurately reflects my personal performance of the history, physical exam, medical decision making, and the department course for this patient. I have also personally directed, reviewed, and agree with the discharge instructions and disposition.
[2017-02-09] MEDS ORDERED: Dexamethasone 4 mg/1 ml ONE (17:37)
== END 2017-02-09 18:51 | disposition home or self-care (01) ==
LOC: C.ER 16:20
DX: M54.12 Radiculopathy, cervical region (principal)
CPT/HCPCS: 96372; 99283; J1100; J1885

== ENCOUNTER 2018-05-03 09:51 | Emergency (ER) | payer SELFPAY ==
[2018-05-03 09:51] VITALS: BMI 34.5
[2018-05-03 09:57] VITALS: BP 146/97; PULSE 96; RESP 20; TEMP 97.8; O2SAT 98
--- NOTE | 2018-05-03 10:48 | C.PDOC ---
History Of Present Illness 52 year old male presents to ED complaining of pain resulting from work related injuries that occurred in March of this year. Patient states that he fell off an 18-wheel truck and sustained multiple injuries. He was in [facility] for one week and was unconscious. Patient currently has a rib fracture to his right side, a right knee injury, and a scapula fracture on the his right side. He is currently in severe pain and wants to know what he should do next, since he has no insurance. Patient is currently complaining of headache, neck pain, back pain, rib pain, and pain to his right knee. Patient denies fever, nausea,and vomiting. - HPI Time Seen by Provider: 05/03/18 09:59 Chief Complaint (Nursing): Rib Injury History Per: Patient History/Exam Limitations: no limitations Onset/Duration Of Symptoms: Other (1 month) Location Of Injury: Right: Knee, Shoulder Severity: Severe - Fall Fall:Prior To Injury: Slipped Past Medical History Reviewed: Historical Data, Nursing Documentation, Vital Signs Vital Signs: Last Vital Signs Temp 97.8 F 05/03/18 09:56 Pulse 96 H 05/03/18 09:56 Resp 20 05/03/18 09:56 BP 146/97 H 05/03/18 09:56 Pulse Ox 98 05/03/18 09:56 - Medical History PMH: HTN, Kidney Stones Surgical History: No Surg Hx Family History: States: Unknown Family Hx - Social History Hx Tobacco Use: No Hx Alcohol Use: No Hx Substance Use: No - Immunization History Hx Tetanus Toxoid Vaccination: No Hx Influenza Vaccination: No Hx Pneumococcal Vaccination: No Review Of Systems Constitutional: Negative for: Fever, Chills, Weakness Cardiovascular: Negative for: Chest Pain Gastrointestinal: Negative for: Nausea, Vomiting Musculoskeletal: Positive for: Neck Pain, Back Pain, Leg Pain (right knee), Other (rib pain) Neurological: Positive for: Headache. Negative for: Weakness, Numbness, Dizziness Physical Exam - Physical Exam Appears: Non-toxic Skin: Normal Color, Warm, Dry Head: Atraumatic, Normacephalic Neck: Normal ROM, Supple Chest: Symmetrical, No Deformity Respiratory: No Accessory Muscle Use Gastrointestinal/Abdominal: Soft, No Tenderness Extremity: Other (Right arm is in a sling, right knee is mobilized) Neurological/Psych: Oriented x3, Normal Speech, Normal Cognition Gait: With Assistance (using cane to ambulate) ED Course And Treatment O2 Sat by Pulse Oximetry: 98 (in RA) Medical Decision Making Medical Decision Making: Impression: 52 year old male complaining of headache, back pain, neck pain, and rib pain Plan: Patient given Motrin PO, Tylenol PO, and Tramadol PO. 10:40am: Discussed case with Dr. Leyva in [facility] clinic. Patient will follow up with her for referral for pain management and physical therapy. Upon reassessment, patient is resting comfortably, in no distress, and is stable for discharge. Discussed plan with patient who expresses understanding. All questions answered and there is agreement with the plan to discharge home with instructions. Return if symptoms persist or worsen. Disposition Counseled Patient/Family Regarding: Diagnosis, Need For Followup, Rx Given - Disposition Referrals: [facility] at [facility] [Outside] [facility] [Outside] Disposition: HOME/ ROUTINE Disposition Time: 10:47 Condition: GUARDED Prescriptions: Ibuprofen [Motrin] 600 mg PO TID #15 tab traMADol/Acetaminophen [Ultracet 37.5/325 mg] 1 tab PO TID PRN #15 tab PRN Reason: pain Instructions: General Trauma Forms: Gen Discharge Inst Indonesian - POA Present On Arrival: None - Clinical Impression Clinical Impression: Trauma of torso, Scapular fracture, Rib fracture - Scribe Statement The provider has reviewed the documentation as recorded by the Scribe (Catalina Doty) All medical record entries made by the Scribe were at my direction and personally dictated by me. I have reviewed the chart and agree that the record accurately reflects my personal performance of the history, physical exam, medical decision making, and the department course for this patient. I have also personally directed, reviewed, and agree with the discharge instructions and disposition.
== END 2018-05-03 11:00 | disposition home or self-care (01) ==
LOC: C.ER 09:51
DX: S22.31XA Fracture of one rib, right side, initial encounter for closed fracture (principal); S42.101A Fracture of unspecified part of scapula, right shoulder, initial encounter for closed fracture; W17.89XA Other fall from one level to another, initial encounter; I10 Essential (primary) hypertension

== ENCOUNTER 2018-07-10 09:30 | Emergency (ER) | payer OTHER ==
[2018-07-10 09:48] VITALS: BMI 34.9
[2018-07-10 09:52] VITALS: RESP 18; O2SAT 96
[2018-07-10] MEDS ORDERED: Sodium Chloride 0.9% 1,000 ML IV ONE (11:00)
--- NOTE | 2018-07-10 11:25 | C.PDOC ---
History Of Present Illness 53 y/o male presents to ED with complaints of hematuria and right flank pain since 2 days ago. States he has not taken any medication since yesterday morning. Patient denies any fever, chills, nausea, vomiting, diarrhea, or other complaints. Time Seen by Provider: 07/10/18 10:48 Chief Complaint (Nursing): Male Genitourinary History Per: Patient History/Exam Limitations: no limitations Onset/Duration Of Symptoms: Days Current Symptoms Are (Timing): Still Present Associated Symptoms: Other (hematuria, right flank pain) Past Medical History Reviewed: Historical Data, Nursing Documentation, Vital Signs Vital Signs: Last Vital Signs Temp 98.9 F 07/10/18 09:48 Pulse 83 07/10/18 09:48 Resp 18 07/10/18 09:48 BP 163/118 H 07/10/18 09:48 Pulse Ox 96 07/10/18 09:48 Primary Care Provider: Estephanie Leyva - Medical History PMH: HTN, Kidney Stones Family History: States: No Known Family Hx - Social History Hx Tobacco Use: No Hx Alcohol Use: No Hx Substance Use: No - Immunization History Hx Tetanus Toxoid Vaccination: No Hx Influenza Vaccination: No Hx Pneumococcal Vaccination: No Review Of Systems Except As Marked, All Systems Reviewed And Found Negative. Constitutional: Negative for: Fever, Chills Gastrointestinal: Positive for: Abdominal Pain (right flank pain). Negative for: Nausea, Vomiting, Diarrhea Genitourinary: Positive for: Hematuria. Negative for: Penile Pain Musculoskeletal: Negative for: Back Pain Physical Exam - Physical Exam Appears: Non-toxic, No Acute Distress Skin: Warm, Dry Head: Normacephalic Eye(s): bilateral: Normal Inspection Oral Mucosa: Moist Neck: Supple Cardiovascular: Rhythm Regular, No Murmur Respiratory: Normal Breath Sounds, No Rales, No Rhonchi, No Wheezing Gastrointestinal/Abdominal: Soft, No Tenderness Male Genital: Other (right groin tenderness) Extremity: Bilateral: Atraumatic, Normal Color And Temperature Neurological/Psych: Oriented x3, Normal Speech ED Course And Treatment - Laboratory Results Result Diagrams: 07/10/18 12:11 07/10/18 12:11 Lab Interpretation: No Acute Changes O2 Sat by Pulse Oximetry: 96 (RA) Pulse Ox Interpretation: Normal - CT Scan/US Abd/Pel CT Other Rad Studies (CT/US): Read By Radiologist, Radiology Report Reviewed CT/US Interpretation: FINDINGS: LOWER THORAX: 5 mm subpleural nodule lower lobe, unchanged from previous. Previously described as 7 mm but measures 5 mm by similar technique of measurement. No other pulmonary mass. LIVER: Heterogeneously decreased attenuation consistent with fatty infiltration. This represents interval change from the prior CT examination. Smooth contour. No mass. No biliary ductal dilatation. GALLBLADDER AND BILE DUCTS: Cholelithiasis. No mural thickening. No pericholecystic fluid. PANCREAS: Unremarkable. No gross lesion or ductal dilatation. SPLEEN: Unremarkable. ADRENALS: Unremarkable. No mass. KIDNEYS AND URETERS: Low-density left upper pole renal cortical mass, 1.3 cm, measuring -1 Hounsfield unit. Consistent with cortical cyst. No other renal mass. No renal calculus or hydronephrosis. VASCULATURE: Unremarkable. No aortic aneurysm. There is atherosclerotic calcification of the abdominal aorta. BOWEL: There is mild almanzar colonic diverticulosis. There is no evidence of diverticulitis. There is no bowel obstruction. There are no other abnormal bowel loops identified. APPENDIX: Unremarkable. Normal appendix. PERITONEUM: Unremarkable. No free fluid. No free air. LYMPH NODES: Unremarkable. No enlarged lymph nodes. BLADDER: Unremarkable. REPRODUCTIVE: Normal prostate. BONES: No acute fracture. OTHER FINDINGS: None. IMPRESSION: Almanzar colonic diverticulosis without evidence of diverticulitis. No evidence of urinary calculus or urinary tract obstruction. Heterogeneous fatty infiltration of the liver. Cholelithiasis without evidence of cholecystitis. Stable 5 mm nodule in left lower lobe. No further follow-up evaluation advised. 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 Progress Note: Treated with IVF NSS and toradol. On re-evaluation abdomen soft. In no distress. Patient found to be hypertensive he did not take his medication for B/P this am. Patient advised to take his medication after discharge. On re-evaluation abdomen soft , neuro intact Reassessment Condition: Improved Medical Decision Making Medical Decision Making: Plan: --Abd/Pel CT --Labs --IV fluids 1L --Toradol 30 mg IVP --Urine Culture --UA Disposition Counseled Patient/Family Regarding: Studies Performed, Diagnosis, Need For Followup - Disposition Referrals: Saad Whittington MD [Staff Provider] - Disposition: HOME/ ROUTINE Disposition Time: 14:00 Condition: STABLE Additional Instructions: Follow up with urology for further evaluation Prescriptions: Naproxen [Naprosyn] 1 tab PO BID PRN #25 tab PRN Reason: Pain Instructions: Blood in the Urine (Hematuria) in Adults Forms: [facility] (B[place]i) Print Language: VIETNAMESE - POA Present On Arrival: None - Clinical Impression Clinical Impression: Right flank pain - PA / [employer] / Resident Statement MD/DO has reviewed & agrees with the documentation as recorded. - Scribe Statement The provider has reviewed the documentation as recorded by the Scribe Caro Vogt All medical record entries made by the Lilianeibroyer were at my direction and personally dictated by me. I have reviewed the chart and agree that the record accurately reflects my personal performance of the history, physical exam, medical decision making, and the department course for this patient. I have also personally directed, reviewed, and agree with the discharge instructions and disposition.
[2018-07-10] MEDS ORDERED: Sodium Chloride 0.9% 1,000 ML ONE (11:55)
--- NOTE | 2018-07-10 12:05 | CT ---
Date of service: 07/10/2018 PROCEDURE: CT Abdomen and Pelvis without intravenous contrast HISTORY: Pain COMPARISON: 12/30/2016 TECHNIQUE: Without contrast.. Contrast dose: 0 Radiation dose: Total exam DLP = 1074.67 mGy-cm. This CT exam was performed using one or more of the following dose reduction techniques: Automated exposure control, adjustment of the mA and/or kV according to patient size, and/or use of iterative reconstruction technique. FINDINGS: LOWER THORAX: 5 mm subpleural nodule lower lobe, unchanged from previous. Previously described as 7 mm but measures 5 mm by similar technique of measurement. No other pulmonary mass. LIVER: Heterogeneously decreased attenuation consistent with fatty infiltration. This represents interval change from the prior CT examination. Smooth contour. No mass. No biliary ductal dilatation. GALLBLADDER AND BILE DUCTS: Cholelithiasis. No mural thickening. No pericholecystic fluid. PANCREAS: Unremarkable. No gross lesion or ductal dilatation. SPLEEN: Unremarkable. ADRENALS: Unremarkable. No mass. KIDNEYS AND URETERS: Low-density left upper pole renal cortical mass, 1.3 cm, measuring -1 Hounsfield unit. Consistent with cortical cyst. No other renal mass. No renal calculus or hydronephrosis. VASCULATURE: Unremarkable. No aortic aneurysm. There is atherosclerotic calcification of the abdominal aorta. BOWEL: There is mild almanzar colonic diverticulosis. There is no evidence of diverticulitis. There is no bowel obstruction. There are no other abnormal bowel loops identified. APPENDIX: Unremarkable. Normal appendix. PERITONEUM: Unremarkable. No free fluid. No free air. LYMPH NODES: Unremarkable. No enlarged lymph nodes. BLADDER: Unremarkable. REPRODUCTIVE: Normal prostate BONES: No acute fracture. OTHER FINDINGS: None. IMPRESSION: Almanzar colonic diverticulosis without evidence of diverticulitis. No evidence of urinary calculus or urinary tract obstruction. Heterogeneous fatty infiltration of the liver. Cholelithiasis without evidence of cholecystitis. Stable 5 mm nodule in left lower lobe. No further follow-up evaluation advised. 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
[2018-07-10 12:18] LABS: BASO # 0.1 K/uL (0.0-0.2); EOS # 0.4 K/uL (0.0-0.7); EOS % 5.8 % (0.0-4.0); HEMOGLOBIN 14.9 g/dL (12.0-18.0); LYMPH # 2.1 K/uL (1.0-4.3); LYMPH % 32.5 % (20.0-40.0); MEAN CELL VOLUME 87.5 fL (80.0-94.0); MEAN CORPUSCULAR HEMOGLOBIN 30.9 pg (27.0-31.0); MEAN CORPUSCULAR HGB CONC 35.3 g/dL (33.0-37.0); MEAN PLATELET VOLUME 10.6 fL (7.2-11.7); MONO # 0.4 K/uL (0.0-0.8); NEUT # 3.5 K/uL (1.8-7.0); NEUT % 54.7 % (50.0-75.0); NRBC % 0.1 % (0.0-2.0); RBC 4.81 Mil/uL (4.40-5.90); RED CELL DISTRIBUTION WIDTH 14.1 % (11.5-14.5); WHITE BLOOD COUNT 6.5 K/uL (4.8-10.8)
[2018-07-10 12:31] LABS: ALB/GLOB RATIO 1.4 (1.0-2.1); ALBUMIN 4.6 g/dL (3.5-5.0); BLOOD UREA NITROGEN 10 mg/dL (9-20); CALCIUM 9.6 mg/dl (8.6-10.4); GFR NON-AFRICAN AMERICAN > 60
[2018-07-10 12:33] LABS: ALT/SGPT 31 U/L (21-72); AST/SGOT 42 U/L (17-59)
[2018-07-10 12:34] LABS: SQUAMOUS EPITHIAL 3 /hpf (0-5); URINE BACTERIA RARE (<OCC); URINE BILIRUBIN NEGATIVE (NEGATIVE); URINE BLOOD 2+ (NEGATIVE); URINE CLARITY Clear (Clear); URINE COLOR Yellow (YELLOW); URINE GLUCOSE (UA) 3+ mg/dL (Normal); URINE LEUKOCYTE ESTERASE NEG Leu/uL (Negative); URINE PROTEIN NEGATIVE (NEGATIVE); URINE UROBILINOGEN NORMAL mg/dL (0.2-1.0)
[2018-07-10 14:03] VITALS: BP 172/106; PULSE 61; TEMP 98
== END 2018-07-10 14:03 | disposition home or self-care (01) ==
LOC: C.ER 09:30
DX: R10.9 Unspecified abdominal pain (principal)
CPT/HCPCS: 74176; 80053; 81001; 85025; 87086; 96361; 96374; 99284; J1885; J7030